=== PATIENT | male | born 1970 ===

== ENCOUNTER 2017-11-10 23:21 | Inpatient (IN) | payer MEDICAID, OTHER ==
[2017-11-11] MEDS ORDERED: Sodium Chloride 0.9% 1,000 ML IV STA (00:17)
--- NOTE | 2017-11-11 00:29 | ED PDOC ---
HPI: Psych/Substance Abuse Time Seen by Provider: 11/10/17 23:49 Chief Complaint (Nursing): Psychiatric Evaluation ED Caveat: Acuity of Condition, Altered Mental Status History Per: Patient Onset/Duration Of Symptoms: Days Current Symptoms Are (Timing): Still Present Modifying Factor(s): None Severity: None Pain Scale Rating Of: 0 Associated Symptoms: Paranoia, Suicidal Thoughts Additional Complaint(s): PT. w/ hx of "mental disorder" p/w paranoia, states that he "didn't do anything " but feels as though hospital staff may kill him, patient is hard to direct, has flight of ideas during history and PE. Pt. denies drug/alcohol use, but states he drank "a liquid to purify him". Denies HI. A&O x 2 (oriented to person, place- knows he is in [place], not oriented to time- thinks its 2017). Past Medical History Reviewed: Historical Data, Nursing Documentation, Vital Signs Vital Signs: Last Vital Signs Temp 98.8 F 11/10/17 23:23 Pulse 133 H 11/10/17 23:23 Resp 18 11/10/17 23:23 BP 194/106 H 11/10/17 23:23 Pulse Ox 98 11/10/17 23:23 - Family History Family History: States: Unknown Family Hx - Home Medications Home Medications: Ambulatory Orders Medication Instructions Recorded No Known Home Med 11/11/17 - Allergies Allergies/Adverse Reactions: Allergies Allergy/AdvReac Type Severity Reaction Status Date / Time No Known Allergies Allergy Verified 11/10/17 23:26 Review of Systems Review Of Systems: ROS cannot be obtained secondary to pt's inabilty to answer questions. Physical Exam - Reviewed Nursing Documentation Reviewed: Yes Vital Signs Reviewed: Yes - Physical Exam Appears: Positive for: Non-toxic. Negative for: Well (anxious appearing) Head Exam: Positive for: ATRAUMATIC, NORMAL INSPECTION, NORMOCEPHALIC Skin: Positive for: Normal Color, Warm, DRY Eye Exam: Positive for: EOMI, Normal appearance, PERRL ENT: Positive for: Normal ENT Inspection Neck: Positive for: Normal, Painless ROM Cardiovascular/Chest: Positive for: Regular Rate, Rhythm Respiratory: Positive for: CNT, Normal Breath Sounds Gastrointestinal/Abdominal: Positive for: Normal Exam. Negative for: Soft, Tenderness Back: Positive for: Normal Inspection Neurologic/Psych: Positive for: Alert, addictions counselor assistant II-XII, Mood/Affect (anxious, paranoid). Negative for: Oriented (A&O x 2), Motor/Sensory Deficits - Laboratory Results Result Diagrams: 11/11/17 00:38 11/11/17 00:38 - ECG O2 Sat by Pulse Oximetry: 98 Medical Decision Making Medical Decision Making: A/P: Pt. w/ hx of psych d/o NOS p/w paranoia, hearing voices as well -patient will require medical clearance -likely schizophrenia -will give ativan IV and 1L NS given tachycardia 2AM Pt. to be admitted to psych, case d/w Dr. Lozoya by Yulissa, delinquency prevention social worker 4AM HR and BP improving Disposition - Clinical Impression Clinical Impression: Schizophrenia - Disposition Disposition Time: 02:00 Condition: GUARDED
[2017-11-11 00:42] LABS: BASO % 0.5 % (0.0-2.0); EOS % 0.1 % (0.0-4.0); HEMOGLOBIN 15.5 g/dL (12.0-18.0); LYMPH # 1.3 K/uL (1.0-4.3); MEAN CELL VOLUME 91.5 fl (80.0-94.0); MEAN CORPUSCULAR HEMOGLOBIN 30.3 pg (27.0-31.0); MEAN CORPUSCULAR HGB CONC 33.1 g/dL (33.0-37.0); MEAN PLATELET VOLUME 10.1 fl (7.2-11.7); MONO # 0.5 K/uL (0.0-0.8); MONO % 5.3 % (0.0-10.0); NEUT # 6.8 K/uL (1.8-7.0); NEUT % 79.1 % (50.0-75.0); NRBC % 0.1 % (0.0-0.0); RBC 5.1 Mil/uL (4.40-5.90); RED CELL DISTRIBUTION WIDTH 13.2 % (11.5-14.5); WHITE BLOOD COUNT 8.6 K/uL (4.8-10.8)
[2017-11-11 00:48] LABS: BLOOD UREA NITROGEN 11 mg/dl (9-20); CALCIUM 9.6 mg/dL (8.4-10.2); GFR AFRICAN-AMERICAN > 60; GFR NON-AFRICAN AMERICAN > 60
[2017-11-11 00:49] LABS: ACETAMINOPHEN < 10.0 ug/ml (10.0-30.0); SALICYLATE < 1.0 mg/dl
[2017-11-11 02:37] LABS: SQUAMOUS EPITHIAL < 1 /hpf (0-5); URINE BILIRUBIN NEGATIVE (NEGATIVE); URINE BLOOD NEGATIVE (NEGATIVE); URINE CLARITY CLEAR (Clear); URINE COLOR YELLOW (YELLOW); URINE GLUCOSE (UA) 50 mg/dL (Normal); URINE LEUKOCYTE ESTERASE NEG Leu/uL (Negative); URINE NITRATE NEGATIVE (NEGATIVE); URINE PROTEIN NEGATIVE (NEGATIVE)
[2017-11-11 02:56] LABS: BARBITURATES, UR NEGATIVE (NEGATIVE); BENZODIAZEPINES, UR NEGATIVE (NEGATIVE); OPIATES, UR NEGATIVE (NEGATIVE); PHENCYCLIDINE, UR NEGATIVE (NEGATIVE)
[2017-11-11] MEDS ORDERED: Metoprolol 1 mg/ml Inj IVP STA (03:15)
[2017-11-11] MEDS ORDERED: Metoprolol 1 mg/ml Inj IVP ONE (04:12)
--- NOTE | 2017-11-11 09:40 | RAD ---
HISTORY: psych COMPARISON: No prior. FINDINGS: LUNGS: Left basilar pleural plaque. No active pulmonary disease. PLEURA: No significant pleural effusion identified, no pneumothorax apparent. CARDIOVASCULAR: Normal. OSSEOUS STRUCTURES: Dextro convex curvature of the thoracic spine. VISUALIZED UPPER ABDOMEN: Normal. OTHER FINDINGS: None. IMPRESSION: No active disease.
[2017-11-11 20:19] VITALS: O2SAT 96
[2017-11-11] MEDS ORDERED: DiphenhydrAMINE 50 mg/ml Inj IM PRN (20:51)
[2017-11-11] MEDS ORDERED: Alum-Mag Hydrox-Simethicone Susp (30 mL) PO PRN (20:51)
[2017-11-11] MEDS ORDERED: Magnesium Hydroxide Susp 30 ml UD PO PRN (20:51)
--- NOTE | 2017-11-11 23:11 | PCM.BM ---
<Sommer Snyder Tenisha - Last Filed: 11/11/17 23:09> Treatment Plan Problems - Problems identified on initial assessmt Auditory Hallucinations Date Initiated: 11/11/17 Time Initiated: 23:09 Assessment reference: NA Status: Active High Risk: Violence Date Initiated: 11/11/17 Time Initiated: 23:10 Assessment reference: NA Status: Active Treatment assets and liabiliti Patient Assests: cooperative, ADL independent, physically healthy, negotiates basic needs Patient Liabilities: financial problems, poor support system, substance abuse - Milieu Protocol Maintain good personal hygiene: daily Encourage regular showers, every shift Remind patient to perform daily oral care Conduct patient checks and document Observation sheet: Q15 minutes Maintain personal safety: every shift Educate patient to report safety concerns to staff, every shift Monitor environment for contraband/sharps Medication safety: Monitor for expected outcome, potential side effects: every shift, Assess barriers to learning: every shift, Assess readiness for medication education: every shift <Marcia Jones - Last Filed: 11/13/17 17:06> Treatment assets and liabiliti Patient Assests: adapts well, cooperative, resourceful, self-reliant, ADL independent, physically healthy, negotiates basic needs, good past tx response, cognitively intact Patient Liabilities: financial problems, poor support system, substance abuse Family Contact Family involvement: Patient does not wish Family/SO involvement Family contact: Patient agrees to contact, Patient declines to allow family contact at present - Goals for Treatment Patient goals for treatment: Patient to continue stabilization on 3NP through medication management and group/supportive therapy to reduce AH and improve symptoms of anxiety and depression. Patient to be encouraged to attend groups regularly to promote self-awareness, sobriety, and improve insight, coping skills and self-esteem. Patient to be provided with referral for appropriate level of aftercare to reduce risk of future hospitalizations and ensure safety in the community. Discharge/Continuing Care - Education Needs Education Needs: Patient Medication, Patient Coping Skills, Patient Community resources, Patient Aftercare Safety Plan - Discharge Discharge Criteria: Tolerates medication w/o severe side effects, Free of paranoid thoughts, Normal sleep pattern, Ability to care for self, Reduction of target symptoms (AH/VH) Discharge to:: Home, Other ([facility]) <Edvin Carter - Last Filed: 11/14/17 16:43> Discharge/Continuing Care - Additional Comments 11/14/17 16:33During treatment team pt denied SI and AVT hallucinations. It was observed that pt presented as brighter and more energetic than the previous day. Pt was discharged focused and sked to leave it was decided that due to symptoms upon admission that pt should stay until 11/17. - Treatment Team Participation Was Patient/Family/SO present at Treatment Team Meeting: Yes
--- NOTE | 2017-11-12 02:59 | CARD ---
APPROVED REPORT EKG Measurement Heart [id number] <Conclusion> Sinus tachycardia Left axis deviation Pulmonary disease pattern Abnormal ECG
[2017-11-12 07:31] LABS: T4 8.32 ug/dl (5.5-11.0)
[2017-11-12] MEDS ORDERED: Potassium Chloride 20 mEq ER Tab PO ONE (18:14)
--- NOTE | 2017-11-12 18:16 | CP.PCM.CON ---
<Dami Ken - Last Filed: 11/12/17 18:45> History of Present Illness - History of Present Illness History of Present Illness: Caden is a 47 yo M with pmhx of htn presents with paranoia 2/2 auditory hallucinations telling him that unknown people are trying to hurt him. Reports last instance 4 months ago. Denies: SI/HI/visual hallucinations. Reports chest discomfort: midsternal, non radiating, pressure like, exacerbated with exercise, cough. alleviated with tylenol. present for 1 year. associated with acid reflux. Denies: SOB/N/V PCP: none medhx: HTN (nonmedicated) famhx: none surg: none soc: denies smoking or illicit drugs; drinks 20 beers a week NKDA Review of Systems - Constitutional Constitutional: As Per HPI Past Patient History - Past Medical History & Family History Past Medical History?: Yes - Past Social History Smoking Status: Never Smoked Alcohol: > 2 Drinks/Day Drugs: Denies Home Situation {Lives}: Alone - CARDIAC Hx Cardiac Disorders: Yes Hx Hypertension: Yes - PULMONARY Hx Respiratory Disorders: No Hx Tuberculosis: No - NEUROLOGICAL Hx Neurological Disorder: No HX Cerebrovascular Accident: No Hx Seizures: No - HEENT Hx HEENT Problems: No - RENAL Hx Chronic Kidney Disease: No - ENDOCRINE/METABOLIC Hx Endocrine Disorders: No - HEMATOLOGICAL/ONCOLOGICAL Hx Blood Disorders: No Hx Cancer: No Hx Human Immunodeficiency Virus (HIV): No - INTEGUMENTARY Hx Dermatological Problems: No - MUSCULOSKELETAL/RHEUMATOLOGICAL Hx Musculoskeletal Disorders: No - GASTROINTESTINAL Hx Gastrointestinal Disorders: No - GENITOURINARY/GYNECOLOGICAL Hx Genitourinary Disorders: No Hx Sexually Transmitted Disorders: No - PSYCHIATRIC Hx Hallucinations: Yes (auditory) Hx Paranoia: Yes Hx Schizophrenia: Yes Hx Substance Use: No - SURGICAL HISTORY Hx Surgeries: No - ANESTHESIA Hx Anesthesia: No Hx Anesthesia Reactions: No Hx Malignant Hyperthermia: No Has any member of the family had a problem w/ anesthesia?: No Meds Allergies/Adverse Reactions: Allergies Allergy/AdvReac Type Severity Reaction Status Date / Time No Known Allergies Allergy Verified 11/10/17 23:26 - Medications Medications: Current Medications Acetaminophen (Tylenol 325mg Tab) 650 mg PO Q4 PRN PRN Reason: Pain, moderate (4-7) Al Hydrox/Mg Hydrox/Simethicone (Maalox Plus 30 Ml) 30 ml PO Q4 PRN PRN Reason: Dyspepsia Diphenhydramine HCl (Benadryl) 50 mg IM Q6 PRN PRN Reason: Extrapyramidal S/S Unable PO Diphenhydramine HCl (Benadryl) 50 mg PO Q6 PRN PRN Reason: Extrapyramidal Symptoms Famotidine (Pepcid) 20 mg PO DAILY CAM Haloperidol (Haldol) 5 mg PO Q4 PRN PRN Reason: Agitation Haloperidol Lactate (Haldol) 5 mg IM Q4 PRN PRN Reason: Agitation, Unable to Take PO Ibuprofen (Motrin Tab) 600 mg PO Q6 PRN PRN Reason: Pain, moderate (4-7) Lorazepam (Ativan) 2 mg IM Q4 PRN PRN Reason: Anxiety/Agitation,Unable PO Lorazepam (Ativan) 2 mg PO Q4 PRN PRN Reason: Anxiety/Agitation Magnesium Hydroxide (Milk Of Magnesia) 30 ml PO HS PRN PRN Reason: Constipation Potassium Chloride (K-Dur 20 Meq Er Tab) 20 meq PO ONCE ONE Stop: 11/12/17 18:15 Physical Exam - Eye Exam Eye Exam: EOMI - Neck Exam Neck exam: Positive for: Full Rom - Respiratory Exam Respiratory Exam: Clear to Auscultation Bilateral, NORMAL BREATHING PATTERN. absent: Wheezes - Cardiovascular Exam Cardiovascular Exam: REGULAR RHYTHM, +S1, +S2 - GI/Abdominal Exam GI & Abdominal Exam: Normal Bowel Sounds, Soft. absent: Tenderness - Extremities Exam Extremities exam: Negative for: calf tenderness - Neurological Exam Neurological exam: Alert, CN II-XII Intact, Oriented x3 - Psychiatric Exam Psychiatric exam: Normal Affect, Normal Mood Results - Vital Signs Recent Vital Signs: Last Vital Signs Temp 98.2 F 11/12/17 16:46 Pulse 100 H 11/12/17 16:46 Resp 20 11/12/17 16:46 BP 141/74 11/12/17 16:46 Pulse Ox 96 11/11/17 20:19 - Labs Result Diagrams: 11/11/17 00:38 11/11/17 00:38 Labs: Laboratory Results - last 24 hr 11/12/17 11/12/17 11/12/17 06:15 06:15 06:15 Hemoglobin A1c 5.8 Troponin I Triglycerides 171 H Cholesterol 189 LDL Cholesterol Direct 117 HDL Cholesterol 54 Thyroxine (T4) 8.32 TSH 3rd Generation 2.88 RPR Nonreactive 11/12/17 16:34 Hemoglobin A1c Troponin I < 0.0120 Triglycerides Cholesterol LDL Cholesterol Direct HDL Cholesterol Thyroxine (T4) TSH 3rd Generation RPR Assessment & Plan - Assessment and Plan (Free Text) Plan: 47 yo m presents with auditory hallucinations 1) paranoia 2/2 auditory hallucinations - possible schizophrenia - currently managed by psychiatry 2) htn - monitor bp - maybe 2/2 anxiety 3) hypokalemia - K: 11/12/2017: 3.2 - KDUR 20 meq PO - f/u BMP 4) Chest discomfort - troponin neg x1 - likely costochodritis - Motrin 600 mg - continue to monitor 5) Acid reflux - Famotidine 20 mg PO DAILY 6) VTE prophylaxis - pt ambulating <Bonifacio Kasper - Last Filed: 11/12/17 19:29> Meds - Medications Medications: Current Medications Acetaminophen (Tylenol 325mg Tab) 650 mg PO Q4 PRN PRN Reason: Pain, moderate (4-7) Al Hydrox/Mg Hydrox/Simethicone (Maalox Plus 30 Ml) 30 ml PO Q4 PRN PRN Reason: Dyspepsia Diphenhydramine HCl (Benadryl) 50 mg IM Q6 PRN PRN Reason: Extrapyramidal S/S Unable PO Diphenhydramine HCl (Benadryl) 50 mg PO Q6 PRN PRN Reason: Extrapyramidal Symptoms Famotidine (Pepcid) 20 mg PO DAILY CAM Haloperidol (Haldol) 5 mg PO Q4 PRN PRN Reason: Agitation Haloperidol Lactate (Haldol) 5 mg IM Q4 PRN PRN Reason: Agitation, Unable to Take PO Ibuprofen (Motrin Tab) 600 mg PO Q6 PRN PRN Reason: Pain, moderate (4-7) Lorazepam (Ativan) 2 mg IM Q4 PRN PRN Reason: Anxiety/Agitation,Unable PO Lorazepam (Ativan) 2 mg PO Q4 PRN PRN Reason: Anxiety/Agitation Magnesium Hydroxide (Milk Of Magnesia) 30 ml PO HS PRN PRN Reason: Constipation Risperidone (Risperdal M-Tab) 1 mg PO HS CAM Results - Vital Signs Recent Vital Signs: Last Vital Signs Temp 98.2 F 11/12/17 16:46 Pulse 100 H 11/12/17 16:46 Resp 20 11/12/17 16:46 BP 141/74 11/12/17 16:46 Pulse Ox 96 11/11/17 20:19 - Labs Result Diagrams: 11/11/17 00:38 11/11/17 00:38 Labs: Laboratory Results - last 24 hr 11/12/17 11/12/17 11/12/17 06:15 06:15 06:15 Hemoglobin A1c 5.8 Troponin I Triglycerides 171 H Cholesterol 189 LDL Cholesterol Direct 117 HDL Cholesterol 54 Thyroxine (T4) 8.32 TSH 3rd Generation 2.88 RPR Nonreactive 11/12/17 16:34 Hemoglobin A1c Troponin I < 0.0120 Triglycerides Cholesterol LDL Cholesterol Direct HDL Cholesterol Thyroxine (T4) TSH 3rd Generation RPR Assessment & Plan - Assessment and Plan (Free Text) Plan: ATTENDING ATTESTATION: Patient was seen and examined. I discussed the case with the resident and agree with the findings and plan as documented in the residents note.
--- NOTE | 2017-11-12 19:16 | PCM.PSYCH ---
Initial Psychiatric Evaluation - Initial Psychiatric Evaluation Chief Complaint (in patient's own words): came to hospital thinking people were trying to hurt him Patient's Reaction to Hospitalization: signed in voluntarily History of Present Illness and Precipitating Events: report hx of schizophrenia, non adherence. reports was having command hallucinations to harm people no exact target identified. reprts left and family in [facility] to come [place]. reports longer standing hx. of schizophrenia. Current Medications: Active Medications Generic Name Dose Route Start Last Admin Trade Name Freq PRN Reason Stop Dose Admin Acetaminophen 650 mg 11/11/17 20:51 Tylenol 325mg Tab PO Q4 PRN Pain, moderate (4-7) Al Hydrox/Mg Hydrox/Simethicone 30 ml 11/11/17 20:51 Maalox Plus 30 Ml PO Q4 PRN Dyspepsia Diphenhydramine HCl 50 mg 11/11/17 20:51 Benadryl IM Q6 PRN Extrapyramidal S/S Unable PO Diphenhydramine HCl 50 mg 11/11/17 20:51 Benadryl PO Q6 PRN Extrapyramidal Symptoms Famotidine 20 mg 11/13/17 09:00 Pepcid PO DAILY CAM Haloperidol 5 mg 11/11/17 20:51 Haldol PO Q4 PRN Agitation Haloperidol Lactate 5 mg 11/11/17 20:51 Haldol IM Q4 PRN Agitation, Unable to Take PO Ibuprofen 600 mg 11/12/17 18:14 Motrin Tab PO Q6 PRN Pain, moderate (4-7) Lorazepam 2 mg 11/11/17 20:51 Ativan IM Q4 PRN Anxiety/Agitation,Unable PO Lorazepam 2 mg 11/11/17 20:51 Ativan PO Q4 PRN Anxiety/Agitation Magnesium Hydroxide 30 ml 11/11/17 20:51 Milk Of Magnesia PO HS PRN Constipation Past Psychiatric History - Past Psychiatric History At what hospital: in [place] Explanation of prior treatment: inpt and opd non adherence Pertinent Medical Hx (Current Medical&Sleep Prob, Allergies): Allergies Allergy/AdvReac Type Severity Reaction Status Date / Time No Known Allergies Allergy Verified 11/10/17 23:26 No Known Home Med 11/11/17 Review of Systems - Psychiatric Psychiatric: Hallucinations, Irritability, Paranoia Mental Status Examination - Personal Presentation Personal Presentation: Looks older than stated age - Affect Affect: Constricted - Motor Activity Motor Activity: Psychomotor Retardation - Reliability in Providing Information Reliability in Providing Information: Poor, due to alteration in thoughts - Speech Speech: Disorganized - Formal Thought Process Formal Thought Process: Hallucinations - Cognitive Functions Attention/Concentration: Easily distracted Judgement: Imparied, as evidence by: Other - Risk Additional comments: command hallucinations - Strength & Assets Inventory Additional comments: signed in voluntary - Limitations Additional comments: non adherence DSM 5 DX - DSM 5 DSM 5 Diagnosis: schizophrenia of paranoid type - Recommended/Plan of Treatment Treatment Recommendations and Plan of Treatment: admission per attending vital signs and clinical observation per protocol and per status hospitalist consult kate hughesb 1mg hs-team to re evaluate in am possible increase consider possible long acting discharge planning in progress Projected ELOS: 5-7 days Prognosis: guarded Discharge Plan and Discharge Criteria: safety - Smoking Cessation Smoking Cessation Initiated: No Reason for not providing: pt defers
[2017-11-12] MEDS ORDERED: Risperidone M tab 1 MG PO SCH (22:00)
[2017-11-13 07:31] LABS: BLOOD UREA NITROGEN 16 mg/dl (9-20); CALCIUM 8.9 mg/dL (8.4-10.2); GFR AFRICAN-AMERICAN > 60; GFR NON-AFRICAN AMERICAN > 60
--- NOTE | 2017-11-13 15:33 | PCM.PYCHPN ---
Psychiatric Progress Note - Psychiatric Progress Note Patient seen today, length of contact: pt evaluated discussed with team chart reviewed Patient Chief Complaint: I am still hearing voices Problems Identified/Issues Discussed: pt on evaluation unkempt, dressed in hospital gown, reported feeling down , constricted affect, reported non command auditory hallucinations, denied suicidal or homicidal ideations, no reported side effects of current medications DSM 5 Symptoms Update: schizophrenia Medication Change: Yes (increase risperidone) Medical Record Reviewed: Yes Mental Status Examination - Cognitive Function Orientation: Person, Place Memory: Intact Attention: Poor Concentration: Poor Association: WNL Fund of Knowledge: Poor - Mood Mood: Depressed, Anxious - Affect Affect: Constricted - Speech Speech: Appropriate - Formal Thought Process Formal Thought Process: Hallucinations Psychotic Thoughts and Behaviors: pt reported non command auditory hallucinations - Suicidal Ideation Suicidal Ideation: No - Homicidal Ideation Homicidal Ideation: No Goal/Treatment Plan - Goal/Treatment Plan Need for Continued Stay: Discharge may exacerbated symptoms Progress Toward Problem(s) and Goals/Treatment Plan: increase risperidone to 2mg group and supportive therapy Estimated Date of D/C: 11/17/17
--- NOTE | 2017-11-14 15:39 | PCM.PYCHPN ---
Psychiatric Progress Note - Psychiatric Progress Note Patient seen today, length of contact: pt evaluated discussed with team chart reviewed Patient Chief Complaint: I am feeling better and the voices are less Problems Identified/Issues Discussed: pt evaluated with the treatment team, reported better mood . brighter affect, reported partial clearing off of the non command auditory hallucinations, denied suicidal or homicidal ideations, no reported side effects of current medications DSM 5 Symptoms Update: schizophrenia alcohol use disorder Medication Change: No Medical Record Reviewed: Yes Mental Status Examination - Cognitive Function Orientation: Person, Place Memory: Intact Attention: Poor Concentration: Poor Association: WNL Fund of Knowledge: Poor - Mood Mood: Depressed, Anxious - Affect Affect: Constricted - Speech Speech: Appropriate - Formal Thought Process Formal Thought Process: Hallucinations Psychotic Thoughts and Behaviors: pt reported non command auditory hallucinations - Suicidal Ideation Suicidal Ideation: No - Homicidal Ideation Homicidal Ideation: No Goal/Treatment Plan - Goal/Treatment Plan Need for Continued Stay: Discharge may exacerbated symptoms Progress Toward Problem(s) and Goals/Treatment Plan: continue with risperidone 2mg group and supportive therapy Estimated Date of D/C: 11/17/17
--- NOTE | 2017-11-15 10:38 | PCM.PYCHPN ---
Psychiatric Progress Note - Psychiatric Progress Note Patient seen today, length of contact: Patient evaluated, chart reviewed Patient Chief Complaint: "I'm getting better." Problems Identified/Issues Discussed: Patient reports that he feels less depressed. He denies current AH/VH/ paranoia. He states that he want stop drinking, but continues to minimize his previous usage, stating that "I only drank 15 beers." He denies adverse effects to medications. He is goal oriented and hopeful for the future. No SI/ HI. No current signs/symptoms of ETOH w/drawal. Medication Change: No Medical Record Reviewed: Yes Consults ordered or reviewed: Medicine Mental Status Examination - Cognitive Function Orientation: Person, Place, Situation, Time Memory: Intact Attention: WNL Concentration: WNL Association: WNL Fund of Knowledge: WNL Decription of patient's judgement and insights: Improving I/J - Mood Mood: Depressed, Anxious - Affect Affect: Constricted - Speech Speech: Appropriate - Formal Thought Process Formal Thought Process: No Impairment Psychotic Thoughts and Behaviors: Denies current AH/VH/paranoia - Suicidal Ideation Suicidal Ideation: No - Homicidal Ideation Homicidal Ideation: No Goal/Treatment Plan - Goal/Treatment Plan Need for Continued Stay: Discharge may exacerbated symptoms Progress Toward Problem(s) and Goals/Treatment Plan: Schizophrenia; Alcohol Use Disorder -Individual and group therapy -Psychoeducation and motivational interviewing -Continue Risperdal 2 mg PO HS -Disposition planning Estimated Date of D/C: 11/17/17
--- NOTE | 2017-11-16 10:37 | PCM.PYCHPN ---
Psychiatric Progress Note - Psychiatric Progress Note Patient seen today, length of contact: Patient evaluated, chart reviewed Patient Chief Complaint: "I'm getting better." Problems Identified/Issues Discussed: Patient reports that his mood continues to improve. NO current AH/VH/paranoia/ delusions. He is goal oriented and hopeful for the future. No SI/HI. No current signs/symptoms of ETOH w/drawal. Medication Change: No Medical Record Reviewed: Yes Consults ordered or reviewed: Medicine Mental Status Examination - Cognitive Function Orientation: Person, Place, Situation, Time Memory: Intact Attention: WNL Concentration: WNL Association: WNL Fund of Knowledge: [facility] Decription of patient's judgement and insights: Improving I/J - Mood Mood: Anxious - Affect Affect: Broad - Speech Speech: Appropriate - Formal Thought Process Formal Thought Process: No Impairment Psychotic Thoughts and Behaviors: Denies current AH/VH/paranoia - Suicidal Ideation Suicidal Ideation: No - Homicidal Ideation Homicidal Ideation: No Goal/Treatment Plan - Goal/Treatment Plan Need for Continued Stay: Discharge may exacerbated symptoms Progress Toward Problem(s) and Goals/Treatment Plan: Schizophrenia; Alcohol Use Disorder -Individual and group therapy -Psychoeducation and motivational interviewing -Continue Risperdal 2 mg PO HS -Disposition planning- likely discharge tomorrow if patient continues to improve clinically Estimated Date of D/C: 11/17/17
[2017-11-17 06:07] VITALS: BP 120/76; PULSE 76; RESP 19; TEMP 97.5
--- NOTE | 2017-11-17 09:36 | PCM.PYCHDC ---
Mental Status Examination - Mental Status Examination Orientation: Person, Place, Situation, Time Memory: Intact Mood: Neutral Affect: Broad Speech: Appropriate Attention: WNL Concentration: WNL Association: WNL Fund of Knowledge: WNL Formal Thought Process: No Impairment Description of patient's judgement and insight: Fair I/J Psychotic Thoughts and Behaviors: Denies current AH/VH/paranoia Suicidal Ideation: No Current Homicidal Ideation?: No Discharge Summary - Discharge Note Reason for Hospitalization: Caden is a 47 yo M with pmhx of htn presents with paranoia 2/2 auditory hallucinations telling him that unknown people are trying to hurt him. Reports last instance 4 months ago. Denies: SI/HI/visual hallucinations. Reports chest discomfort: midsternal, non radiating, pressure like, exacerbated with exercise, cough. alleviated with tylenol. present for 1 year. associated with acid reflux. Denies: SOB/N/V PCP: none medhx: HTN (nonmedicated) famhx: none surg: none soc: denies smoking or illicit drugs; drinks 20 beers a week NKDA Consultations:: List each consultation separately and include: 1. Reason for request. 2. Findings. 3. Follow-up Consultations: Medicine Summary of Hospital Course include:: 1. Description of specific treatment plan utilized for patients during their course of treatmen. 2. Summarize the time- course for resolution of acute symptoms and/or regressed behaviors. 3. Describe issues identified and worked on during hospitalization. 4. Describe medication utilized. 5. Describe medical problems identified and treated. 6. Reassessment of suicide risk Summary of Hospital Course: Patient was admitted to the psychiatry unit. Individual and group therapy were provided. Psychoeducation provided on the importance of alcohol cessation and compliance with treatment and medications. Patient was stabilized on Risperdal 2 mg PO HS. He no longer reports any psychotic symptoms. He is psychiatrically stable for discharge with outpatient follow-up. - Final Diagnosis (DSM 5) Condition upon Discharge: STABLE DSM 5: Schizophrenia; Alcohol Use Disorder Disposition: HOME/ ROUTINE Follow-up Treatment Plan: Schizophrenia; Alcohol Use Disorder -Continue Risperdal 2 mg PO HS -Discharge w/ outpatient follow-up Prescriptions/Medication Reconciliation: Famotidine [Pepcid] 20 mg PO DAILY #30 tab risperiDONE [RisperDAL Tab] 2 mg PO HS #30 tab - Smoking Cessation Smoking Cessation Medication prescribed: No Reason for not providing: Not indicated - Antipsychotic Medications Pt discharged on 2 or more routine antipsychotic medications: No
== END 2017-11-17 14:15 | disposition home or self-care (01) | DRG 885 ==
LOC: H.ER 23:21 → EDBD 23:21 → H.ERHOLD 11-11 02:02 → H.PSYCH 11-11 20:46 → H.STEP 11-16 10:02
PROVIDERS: ADMIT Psychiatry & Neurology Psychiatry; ATTEND Psychiatry & Neurology Psychiatry
PROC: GZHZZZZ Group Psychotherapy (ICD-10-PCS; principal; 2017-11-11)
PROC: HZ57ZZZ Individual Psychotherapy for Substance Abuse Treatment, Motivational Enhancement (ICD-10-PCS; 2017-11-11)
PROC: HZ59ZZZ Individual Psychotherapy for Substance Abuse Treatment, Supportive (ICD-10-PCS; 2017-11-11)
PROC: HZ56ZZZ Individual Psychotherapy for Substance Abuse Treatment, Psychoeducation (ICD-10-PCS; 2017-11-11)
DX: F20.9 Schizophrenia, unspecified (principal); E87.6 Hypokalemia; I10 Essential (primary) hypertension; Z72.89 Other problems related to lifestyle; K21.9 Gastro-esophageal reflux disease without esophagitis; R07.89 Other chest pain